=== PATIENT | male | born 1955 | race Asian ===

== ENCOUNTER → 2017-09-01 | Outpatient (CLI) | payer MEDICAID | END | disposition home or self-care (01) | LOC: U/S 08:56 | DX: N18.6 End stage renal disease (principal) | CPT/HCPCS: 93931 ==

== ENCOUNTER → 2017-09-15 | Outpatient (CLI) | payer MEDICAID | END | disposition home or self-care (01) | LOC: RAD 09:04 | DX: A15.9 Respiratory tuberculosis unspecified (principal) | CPT/HCPCS: 71045 ==

== ENCOUNTER → 2018-07-02 | Outpatient (CLI) | payer MEDICAID | END | disposition home or self-care (01) | LOC: RAD 08:46 | DX: M19.041 Primary osteoarthritis, right hand (principal) | CPT/HCPCS: 73130; 73130-RT ==